=== PATIENT | female | born 1985 | race Caucasian/White ===

== ENCOUNTER 2016-10-24 02:34 | Emergency (ER) | payer OTHER ==
[~2016-10-24 02:34] MED LIST: BACTRIM DS TAB1 EACH PO; IRON325 M1 PO; KEFLEX500 MG PO; NORCO 5-325 TA1 EACH PO
[2016-12-11] MEDS ORDERED: NORCO 7.5-3251 EACH PO (16:55)
[2016-12-11] MEDS ORDERED: BACTRIM DS TAB1 EACH PO (16:55)
[2016-12-11] MEDS ORDERED: KEFLEX500 MG PO (16:55)
[2016-12-11] MEDS ORDERED: LACTINEX TABLET1 EA PO (16:56)
== END 2016-10-24 04:13 | disposition home or self-care (01) ==
LOC: ER1 02:34
DX: I96 Gangrene, not elsewhere classified (principal)
CPT/HCPCS: 99283

== ENCOUNTER 2022-01-17 20:59 | Emergency (ER) | payer OTHER ==
[~2022-01-17 20:59] MED LIST changes: +LACTINEX TABLET1 EA PO; +NORCO 7.5-3251 EACH PO
[2022-01-17 21:34] LABS: HEMOGLOBIN 12.6 gm/dl (12.3-15.3); RED BLOOD COUNT 4.12 M/UL (4.00-5.10); WHITE BLOOD COUNT 8.6 K/UL (4.5-11.0)
[2022-01-17 22:01] LABS: BUN/CREATININE RATIO 12 (0-10)
== END 2022-01-18 00:08 | disposition left against medical advice (07) ==
LOC: ER1 20:59
PROVIDERS: Family Medicine
DX: R06.02 Shortness of breath (principal)
CPT/HCPCS: 80053; 82550; 82553; 84484; 85025; 93005; 99281